=== PATIENT | female | born 1980 | race American Indian/Alaskan Native ===

== ENCOUNTER 2018-07-30 10:22 | Outpatient (CLI) | payer OTHER ==
--- NOTE | 2018-07-30 13:35 | Mammography Report ---
Bilateral mammogram and right breast ultrasound: Patient has history of right breast trauma presenting with a right breast mass. A marker is placed over the area of concern and routine mammographic views demonstrates a somewhat ill-defined area of increased tissue density in the superior right breast adjacent to the marker. In the central portion there is a circumscribed somewhat irregular shaped collection measuring just under 19 mm. Several scattered circumscribed subcentimeter sized nodules are noted near this area as well as in the superior breast. The remainder the breast pattern bilaterally is generally unremarkable and mostly fatty replaced. No prior exams for comparison. CAD used. Ultrasound in the area of concern at 12:00 demonstrates a 3 cm subcutaneous circumscribed inhomogeneously hypoechoic mass which appears to be partially cystic with some scattered echoes within it. There is enhancement posteriorly but there is also a surrounding isoechoic tissue. There are several adjacent predominantly cystic circumscribed nodules less than a centimeter in size. One of the nodule appears more homogeneously hypoechoic but not cystic. Impressions: The findings are most consistent with a hemorrhagic contusion of the breast and a resulting dominant cyst and several smaller cysts. None of these appear suspicious. Recommendation: Clinical followup. Repeat mammogram/ultrasound in 6 months to reevaluate. BI-RADS CATEGORY: 3 = Probably benign ACR BI-RADS MAMMOGRAPHIC CODES: 0 = Needs additional imaging evaluation; 1 = Negative; 2 = Benign; 3 = Probably benign; 4 = Suspicious; 5 = Malignant; 6 = Known biopsy-proven malignancy COMMENT: 1. Dense breast tissue, i.e., adenosis, fibrocystic changes, etc., may obscure an underlying neoplasm. 2. Approximately 10% of cancers are not detected with mammography. 3. A negative mammography report should not delay biopsy if a clinically suspicious mass is present.
== END 2018-07-30 10:23 | disposition home or self-care (01) ==
LOC: MAMMO 10:22
PROVIDERS: ATTEND Internal Medicine
DX: N63.11 Unspecified lump in the right breast, upper outer quadrant (principal)
CPT/HCPCS: 77066